=== PATIENT | female | born 1970 | race Caucasian/White ===

== ENCOUNTER 2019-06-06 03:49 | Emergency (ER) | payer OTHER ==
[~2019-06-06] VITALS: Ht 160 cm; Wt 84.1 kg
[2019-06-06] MEDS ORDERED: AMLO5TAB6 (03:56)
[2019-06-06] MEDS ORDERED: NITR100C2 (03:56)
[2019-06-06] MEDS ORDERED: SERT-155 (03:56)
[2019-06-06] MEDS ORDERED: PHEN-593 (03:56)
[2019-06-06] MEDS ORDERED: LISI40TA (03:56)
[2019-06-06 04:20] LABS: BASO # 0.1 10^3/uL (0.0-0.2); BASO % 0.5 % (0.0-1.0); EOS % 0.1 % (0.0-3.0); HEMOGLOBIN 13.8 g/dl (12.0-15.5); LYMPH # 2.1 10^3/uL (1.5-5.0); LYMPH % 22.8 % (24.0-44.0); MEAN CORPUSCULAR HEMOGLOBIN 29.6 pg (27.0-33.0); MEAN CORPUSCULAR HGB CONC 34.5 g/dl (32.0-36.5); MEAN CORPUSCULAR VOLUME 85.7 fl (80.0-96.0); MONO # 0.4 10^3/uL (0.0-0.8); MONO % 4.5 % (0.0-5.0); NEUTROPHILS # 6.7 10^3/uL (1.5-8.5); NEUTROPHILS % 71.9 % (36.0-66.0); PLATELET COUNT, AUTOMATED 330 10^3/uL (150-450); RED BLOOD COUNT 4.67 10^6/uL (4.00-5.40); WHITE BLOOD COUNT 9.3 10^3/uL (4.0-10.0)
[2019-06-06 04:53] LABS: ALBUMIN 4.1 GM/DL (3.2-5.2); BILIRUBIN,DIRECT 0.1 MG/DL (0.0-0.2); BILIRUBIN,TOTAL 0.3 MG/DL (0.2-1.0); CALCIUM LEVEL 9.5 MG/DL (8.5-10.1); CREATININE FOR GFR 1.3 MG/DL (0.55-1.30); GLOMERULAR FILTRATION RATE 46.3 (>58); TOTAL PROTEIN 7.8 GM/DL (6.4-8.2)
[2019-06-06] MEDS ORDERED: cefTRIAXone SOD 1 GM in D5W MINI-BAG PLUS 50 ML IV ONE (07:00)
[2019-06-06] MEDS ORDERED: ONDANSETRON 4MG/2ML VIAL (J2405) IV ONE (07:00)
[2019-06-06] MEDS ORDERED: NS 1,000 ML IV ONE (07:00)
[2019-06-06] MEDS ORDERED: cefTRIAXone SOD 1 GM VIAL (J0696) As Ordered ONE (07:16)
[2019-06-06] MEDS ORDERED: ONDANSETRON 4MG/2ML VIAL (J2405) As Ordered ONE (07:16)
--- NOTE | 2019-06-06 07:53 | REPVR ---
PROCEDURE INFORMATION: Exam: US Retroperitoneal Limited, Kidneys Exam date and time: 06/06/2019 7:13 AM Clinical history: 48 years old, female; Abdominal pain; Flank; Left; Additional info: Dysuria, left flank pain TECHNIQUE: Imaging protocol: Real-time ultrasound of the retroperitoneum with image documentation. Examination was focused on the kidneys. COMPARISON: No relevant prior studies available. FINDINGS: Right kidney: The right kidney is normal in size and echogenicity with no hydronephrosis or stones identified. The right kidney measures 11.5 cm in length. There is a simple 1.4 x 1.2 x 1.5 cm cyst in the right kidney lower pole. Left kidney: The left kidney is normal in size and echogenicity with no stones identified. The left kidney measures 12.2 cm in length. 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 There is slight fullness of the lower pole renal pelvis. Bladder: Bilateral ureteral jets are identified. IMPRESSION: 1. Left renal collecting system appears duplicated, with slight fullness of the lower pole moiety renal pelvis. 2. No stones identified. Electronically signed by: Neli Tillman On 06/06/2019 07:53:09 AM
[2019-06-06] MEDS ORDERED: LORazepam 0.5 MG TAB PO STA (07:54)
[2019-06-06] MEDS ORDERED: LORazepam 2 MG/ML VIAL (J2060) As Ordered ONE (08:06)
[2019-06-06] MEDS ORDERED: LORazepam 1 MG TAB As Ordered ONE (08:08)
[2019-06-06] MEDS ORDERED: ONDA4TAB6 PO (08:55)
[2019-06-06 09:04] VITALS: BP 144/68
== END 2019-06-06 09:15 | disposition home or self-care (01) ==
LOC: M ED 03:49
DX: N30.00 Acute cystitis without hematuria (principal); E86.0 Dehydration; F41.9 Anxiety disorder, unspecified; R11.10 Vomiting, unspecified; R19.7 Diarrhea, unspecified; Z87.442 Personal history of urinary calculi; F17.200 Nicotine dependence, unspecified, uncomplicated; Z88.2 Allergy status to sulfonamides; Z88.1 Allergy status to other antibiotic agents; Z79.899 Other long term (current) drug therapy
CPT/HCPCS: 76775; 80048; 80076; 81001; 83690; 85025; 87086; 96361; 96374; 96375; 99284; J0696; J2405

== ENCOUNTER 2019-10-08 08:34 | Day surgery (SDC) | payer BC, OTHER ==
[~2019-10-08] VITALS: Ht 157.5 cm; Wt 84.8 kg
[~2019-10-08 08:34] MED LIST: AMLO10TA5 PO; AMLO5TAB6; ATIV1TAB10 PO; LIDOCAINE 2% INJ 100 MG/5 ML SDV (FOR ANES.) As Ordered ONE; LISI40TA PO; LORA0.5T5 PO; NITR100C2; NS 1,000 ML IV ONE; ONDA4TAB6 PO; PHEN-593; SERT50TA29 PO; fentaNYL 100 MCG/2 ML INJECTION (J3010) As Ordered ONE; propofoL 500 MG/50 ML VIAL As Ordered ONE
--- NOTE | 2019-10-08 09:36 | ROOR ---
Patient Name: Priscilla Montalvo Procedure Date: 10/08/2019 9:18 AM Date of : 1970 Age: 49 Room: [facility] Gender: Female Note Status: Finalized Procedure: Upper Endoscopy + Biopsies Indications: Heartburn, Exclusion of Peres's esophagus Providers: Yousuf Eid MD Referring MD: CLAIR FREEMAN MD Requesting Provider: Medicines: Monitored Anesthesia Care Complications: No immediate complications. Procedure: Pre-Anesthesia Assessment: - The heart rate, respiratory rate, oxygen saturations, blood pressure, adequacy of pulmonary ventilation, and response to care were monitored throughout the procedure. The Endoscope was introduced through the mouth, and advanced to the second part of duodenum. The upper GI endoscopy was accomplished without difficulty. The patient tolerated the procedure well. Findings: The Z-line was irregular and was found 39 cm from the incisors. Multiple biopsies were obtained with cold forceps for evaluation to rule out Peres's Esophagus randomly at the gastroesophageal junction. A small hiatal hernia was present. Localized mild inflammation characterized by congestion (edema) and erythema was found in the gastric antrum. Biopsies were taken with a cold forceps for Helicobacter pylori testing. The exam of the duodenum was otherwise normal. Impression: - Z-line irregular, 39 cm from the incisors. - Small hiatal hernia. - Mucosal changes suspicious for gastritis. Biopsied. - Multiple biopsies were obtained at the gastroesophageal junction. - The examination was otherwise normal. Recommendation: - Patient has a contact number available for emergencies. The signs and symptoms of potential delayed complications were discussed with the patient. Return to normal activities tomorrow. Written discharge instructions were provided to the patient. - High fiber diet. - Discharge patient to home. - Continue present medications. - Await pathology results. - Telephone GI clinic for pathology results in 1 week. - Return to referring physician. - The findings and recommendations were discussed with the patient's family. Yousuf Eid MD Yousuf Eid MD 10/08/2019 9:36:26 AM Electronically signed by Yousuf Eid MD Number of Addenda: 0 Note Initiated On: 10/08/2019 9:18 AM Estimated Blood Loss: Estimated blood loss: none.
[2019-10-08] MEDS ORDERED: ePHEDrine SULFATE 25 MG/5 ML(5MG/ML) SYRINGE As Ordered ONE (09:37)
--- NOTE | 2019-10-08 10:08 | ROOR ---
Patient Name: Priscilla Montalvo Procedure Date: 10/08/2019 9:19 AM Date of : 1970 Age: 49 Room: [facility] Gender: Female Note Status: Finalized Procedure: Total Colonoscopy to Cecum + Cold Snare Polypectomy Indications: Screening for colorectal malignant neoplasm Providers: Yousuf Eid MD Referring MD: CLAIR FREEMAN MD Requesting Provider: Medicines: Monitored Anesthesia Care Complications: No immediate complications. Procedure: Pre-Anesthesia Assessment: - The heart rate, respiratory rate, oxygen saturations, blood pressure, adequacy of pulmonary ventilation, and response to care were monitored throughout the procedure. The Colonoscope was introduced through the anus and advanced to the cecum, identified by appendiceal orifice and ileocecal valve. The colonoscopy was performed without difficulty. The patient tolerated the procedure well. The quality of the bowel preparation was excellent. Findings: The perianal and digital rectal examinations were normal. Non-bleeding internal hemorrhoids were found during retroflexion. The hemorrhoids were small and Grade I (internal hemorrhoids that do not prolapse). A small polyp was found in the hepatic flexure. The polyp was sessile. The polyp was removed with a jumbo cold forceps. Resection and retrieval were complete. A small polyp was found at 20 cm proximal to the anus. The polyp was sessile. The polyp was removed with a cold snare. Resection and retrieval were complete. The exam was otherwise without abnormality on direct and retroflexion views. Impression: - Non-bleeding internal hemorrhoids. - One small polyp at the hepatic flexure, removed with a jumbo cold forceps. Resected and retrieved. - One small polyp at 20 cm proximal to the anus, removed with a cold snare. Resected and retrieved. - The examination was otherwise normal on direct and retroflexion views. - The exam was otherwise normal to the cecum. Recommendation: - Patient has a contact number available for emergencies. The signs and symptoms of potential delayed complications were discussed with the patient. Return to normal activities tomorrow. Written discharge instructions were provided to the patient. - Discharge patient to home. - Continue present medications. - Await pathology results. - Repeat colonoscopy for surveillance based on pathology results. - Return to referring physician. - Telephone GI clinic for pathology results in 1 week. - The findings and recommendations were discussed with the patient's family. Yousuf Eid MD Yousuf Eid MD 10/08/2019 10:07:11 AM Electronically signed by Yousuf Eid MD Number of Addenda: 0 Note Initiated On: 10/08/2019 9:19 AM Estimated Blood Loss: Estimated blood loss: none.
[2019-10-08 10:10] VITALS: BP 102/66
== END 2019-10-08 10:24 | disposition home or self-care (01) ==
LOC: M OPP 08:34
PROVIDERS: ATTEND Internal Medicine Gastroenterology
DX: Z12.11 Encounter for screening for malignant neoplasm of colon (principal); K63.5 Polyp of colon; K29.70 Gastritis, unspecified, without bleeding; K64.0 First degree hemorrhoids; D12.3 Benign neoplasm of transverse colon; K22.8 Other specified diseases of esophagus; K44.9 Diaphragmatic hernia without obstruction or gangrene; K31.89 Other diseases of stomach and duodenum; R12 Heartburn; I10 Essential (primary) hypertension; F41.9 Anxiety disorder, unspecified; F32.9 Major depressive disorder, single episode, unspecified; F17.200 Nicotine dependence, unspecified, uncomplicated; K21.9 Gastro-esophageal reflux disease without esophagitis; K27.9 Peptic ulcer, site unspecified, unspecified as acute or chronic, without hemorrhage or perforation; K82.9 Disease of gallbladder, unspecified; Z79.899 Other long term (current) drug therapy; Z88.2 Allergy status to sulfonamides; Z88.1 Allergy status to other antibiotic agents
CPT/HCPCS: 43239; 45380; 45385; 88305; J3010

== ENCOUNTER → 2024-11-13 | Outpatient (REF) | payer BC ==
[~2024-11-13] MED LIST changes: -AMLO10TA5 PO; +AMLO1TAB24; +AMLO1TAB25 PO; -AMLO5TAB6; -LIDOCAINE 2% INJ 100 MG/5 ML SDV (FOR ANES.) As Ordered ONE; -LISI40TA PO; +LISI40TA4 PO; -NS 1,000 ML IV ONE; +ONDA-282 PO; -ONDA4TAB6 PO; -PHEN-593; +PHEN1TAB73; -fentaNYL 100 MCG/2 ML INJECTION (J3010) As Ordered ONE; -propofoL 500 MG/50 ML VIAL As Ordered ONE
== END ==
LOC: M LAB REF 18:34
PROVIDERS: ATTEND Internal Medicine Endocrinology, Diabetes & Metabolism
DX: E04.2 Nontoxic multinodular goiter (principal)